=== PATIENT | female | born 1935 | race Caucasian/White ===

== ENCOUNTER → 2023-07-12 15:07 | Outpatient (REF) | payer MEDICARE, BC, SELFPAY ==
--- NOTE | 2023-07-12 15:17 | CA_ITS ---
Transthoracic Echocardiogram Patient (Last, First, Middle): Sandhya Ackerman, Gender: Female Date of : 1935 Age: 88 Procedure Date: 07/12/2023 Procedure Type: Transthoracic Echocardiogram Location: OP Height: 157.48 cm Weight: 59.88 kg BSA: 1.60 m2 Heart Rate: bpm BP: 122 / 80 mmHg Cigar Head Pegger: TARA Referring MD: Dariana Arriola MD Symptoms: DYSPNEA ANGINA MURMUR Study Quality: Adequate ECG Rhythm: Sinus Conclusions: - The left ventricular systolic function is hyperdynamic. The visually estimated ejection fraction is >70%. - There is mild calcification of the aortic valve. - There is mild anterior mitral leaflet thickening. There is mild mitral annular calcification. - There is mild tricuspid valve regurgitation. Findings Left Ventricle Normal left ventricular cavity size. There is normal left ventricular wall thickness. The left ventricular systolic function is hyperdynamic. The visually estimated ejection fraction is >70%. There is no evidence of regional wall motion abnormalities. Evidence suggests grade I (mild) diastolic dysfunction. Focal hypertrophy of the basal septum. LV peak GLS 12.6%. Right Ventricle Normal right ventricular cavity size and systolic function. Atria Both atria are normal in size. Aortic Valve There is a normal trileaflet aortic valve. There is mild calcification of the aortic valve. There is no aortic valve stenosis. There is no aortic valve regurgitation. Mitral Valve There is mild anterior mitral leaflet thickening. There is mild mitral annular calcification. There is trace mitral valve regurgitation. There is no mitral valve stenosis. Pulmonic Valve The pulmonic valve is likely normal. Tricuspid Valve There is mild tricuspid valve regurgitation. There is no evidence of pulmonary hypertension. Great Vessels The asc aorta is normal in size. Venous The inferior vena cava is normal in size and collapses greater than 50% with inspiration. Pericardium/Pleural There is no evidence of pericardial effusion. Prior Study Comparison No prior study available for comparison. Measurements 2D Linear Measurements IVSd: 0.96 0.6-0.9/0.6-1.0 cm LVIDd: 3.28 3.9-5.3/4.2-5.9 cm LVIDd Index: 2.05 2.4-3.2/2.2-3.1 cm/m2 LVIDs: 1.58 2.0-3.6 cm LVPWd: 0.91 0.7-1.1 cm LA Diam: 2.80 2.7-3.8/3.0-4.0 cm LAIDs Index: 1.75 1.5-2.3 cm/m2 LV Mass: 105.19 67-162/88-224 g LV Mass Index: 65.74 43-95/49-115 g/m2 LVOT Diam: 1.80 3.0+(-)1.3 cm 2D Systolic Function EF 4C: 66.70 >55% EF 2C: 70.30 >55% EF BiP: 70.20 >55% Mitral Valve MV Pk E: 0.72 MV PK A: 1.32 MV Decel Time: 207.00 E/A: 0.50 E'Lateral: 9.03 E'Medial: 3.81 E/E' Med: 19.00 E/E' Lat: 8.00 PHT: 61.00 MVA PHT: 3.61 Decel Cuming: 3.50 Aortic Valve AoV Pk Alvaro: 1.10 AoV Mn Alvaro: 0.78 AoV VTI: 0.23 AoV Pk Grad: 5.00 Aov Mn Grad: 3.00 TRINA Cont.VTI: 2.16 LVOT LVOT Pk Alvaro: 0.94 LVOT Mn Alvaro: 0.68 LVOT VTI: 0.20 LVOT Pk Grad: 4.00 LVOT Mn Grad: 2.00 LVOT Diam: 1.80 LVOT Area: 2.54 Diastolic Function MV Pk E: 0.72 MV Pk A: 1.32 E/A: 0.50 E'Medial: 3.81 E/E' Med: 19.00 E' Laterial: 9.03 E/E' Lat: 8.00 Right Ventricle TAPSE (mm): 18.10 TVS' Alvaro: 12.70 Tricuspid Valve TR Pk Alvaro: 2.66 TR Pk Grad: 28.00 RA Press: 3.00 RVSP: 31.00 Great Vessels Aorta Sinus of Valsalva: 3.28 2.0-3.[address] Ridge: 2.51 1.7-3.4 cm Ao Asc: 3.10 2.1-3.4 cm Updated in Other Vendor System with Status of Final Jaswant Quiroz MD electronically signed on 07/13/2023 9:34:21 AM with status of Final
== END ==
LOC: HO.CARD 15:07
PROVIDERS: PCP Internal Medicine; Visit Provider Internal Medicine
DX: R06.00 Dyspnea, unspecified (principal); I20.0 Unstable angina; R01.1 Cardiac murmur, unspecified
CPT/HCPCS: 93306; 93356

== ENCOUNTER → 2023-07-12 15:17 | Outpatient (BNV) | payer MEDICARE, BC, SELFPAY | PROVIDERS: PCP Internal Medicine; Visit Provider Internal Medicine | DX: I36.1 Nonrheumatic tricuspid (valve) insufficiency (principal); I34.81 Nonrheumatic mitral (valve) annulus calcification | CPT/HCPCS: 93306 ==